=== PATIENT | female | born 1995 | race Caucasian/White ===

== ENCOUNTER 2018-03-13 19:09 | Emergency (ER) | payer MEDICAID ==
[2018-03-13 19:15] VITALS: BP 127/86
--- NOTE | 2018-03-13 19:28 | ER Report ---
History and Physical Time Seen By MD: 19:19 HPI/ROS CHIEF COMPLAINT: Left index finger laceration HISTORY OF PRESENT ILLNESS: 22-year-old female presents with bleeding from a site on her left index finger on the radial surface where she was cutting food when she sliced off a thin layer of the adjacent skin. Next to the nail. She thinks her tetanus status is up-to-date from a few years ago. He is unable to control the bleeding. Allergies: Coded Allergies: No Known Allergies (Verified Allergy, Unknown, 03/13/18) Home Meds No Active Prescriptions or Reported Meds Reviewed Nurses Notes: Yes Old Medical Records Reviewed: Yes Hx Substance Use Disorder: No Hx Alcohol Use: No Constitutional Vital Sign - Last 24 Hours 03/13/18 19:15 Temp 98.6 Pulse 86 Resp 12 B/P (MAP) 127/86 Pulse Ox 96 O2 Delivery Room Air Physical Exam General appearance: Alert no distress. Respiratory: Chest is non tender, lungs are clear to auscultation. Cardiac: Regular rate and rhythm Extremities examination of the left hand examination of the left index finger reveals avulsion of the skin on the radial aspect adjacent to the nail, approxim ately 5 mm x 6 mm. All digits are neurovascularly intact. DIFFERENTIAL DIAGNOSIS: After history and physical exam differential diagnosis was considered for skin avulsion, superficial laceration, foreign body Medical Decision Making ED Course/Re-evaluation ED Course Patient was admitted to an examination room. H&P was done. A focal injection of lidocaine 1% with epinephrine was injected. With good control the bleeding. A pressure dressing was applied. Patient advised to leave it intact for at least 24 hours. And then wear dressing on it every day. Wound care was discussed. Decision to Disposition Date: Mar 13, 2018 Decision to Disposition Time: 19:27 Depart Departure Latest Vital Signs Vital Signs Date Time Temp Pulse Resp B/P (MAP) Pulse Ox O2 Delivery O2 Flow Rate FiO2 03/13/18 19:15 98.6 86 12 127/86 96 Room Air Impression: Primary Impression: Skin avulsion Condition: Improved Disposition: HOME OR SELF-CARE New Scripts No Active Prescriptions or Reported Meds Patient Instructions: Skin Avulsion (ED) Additional Instructions: Perform daily dressing changes. Watch for signs of infection Return for any uncontrolled bleeding LORENZO MACIAS DO Mar 13, 2018 19:28
== END 2018-03-13 19:42 | disposition home or self-care (01) ==
LOC: ER 19:31
DX: S61.201A Unspecified open wound of left index finger without damage to nail, initial encounter (principal)
CPT/HCPCS: 99282